=== PATIENT | male | born 1965 | race African-American/Black ===

== ENCOUNTER 2017-12-24 22:27 | Emergency (ER) | END 2017-12-25 10:49 | disposition left against medical advice (07) ==

== ENCOUNTER 2018-03-13 02:38 | Inpatient (IN) | END 2018-03-18 10:50 | disposition EXP | DRG 207 ==

== ENCOUNTER 2018-03-17 10:37 | Inpatient (IN) | END 2018-03-18 14:00 | disposition EXP | DRG 951 ==